=== PATIENT | female | born 1965 | race Caucasian/White ===

== ENCOUNTER 2023-12-21 15:20 | Outpatient (CLI) | payer OTHER | END 2023-12-21 18:23 | disposition home or self-care (01) | LOC: SMA 15:20 | PROVIDERS: ATTEND Family Medicine | DX: Z12.31 Encounter for screening mammogram for malignant neoplasm of breast (principal); N64.89 Other specified disorders of breast; R92.30 Dense breasts, unspecified | CPT/HCPCS: 77067 ==